=== PATIENT | male | born 1965 | race Caucasian/White ===

== ENCOUNTER → 2021-01-26 10:19 | Outpatient (CLI) | payer BC, SELFPAY ==
--- NOTE | ~2021-01-26 | CT_ITS ---
EXAMINATION: CTA chest DATE: 01/26/2021 11:02 INDICATION: Dilated aortic root (3.6 cm) TECHNIQUE: Computed tomography (CT) of the chest was performed with 100 cc Omnipaque 350 intravenous contrast. Automated exposure control and iterative reconstruction technique were employed. Exam dose: 868.71 mGy-cm total exam DLP. COMPARISON: None FINDINGS: No thoracic aortic aneurysm is evident. The ascending aorta measures approximately 3.3 cm d iameter, the aortic arch approximately 2.6 cm diameter, the descending thoracic aorta approximately 2 .4 cm. No thoracic aortic dissection is detected. Normal heart size. No pericardial or pleural effusion. No hilar or mediastinal mass lesion or lymphadenopathy. No pulmonary infiltrate or consolidation or pulmonary mass lesion is evident. Included upper abdominal structures are unremarkable. Included skeletal structures are unremarkable as well. IMPRESSION: No significant abnormality Reviewed, dictated and finalized at [facility]. Reviewed, dictated and finalized at [facility]. IMPRESSION: No significant abnormality
== END ==
PROVIDERS: Visit Provider Internal Medicine
DX: I77.810 Thoracic aortic ectasia (principal)
CPT/HCPCS: 71275; Q9967

== ENCOUNTER → 2023-01-25 12:53 | Outpatient (CLI) | payer BC, SELFPAY ==
--- NOTE | ~2023-01-25 | MR_ITS ---
EXAMINATION: MR brain IAC wo/w con DATE: 01/25/2023 13:50 INDICATION: Vertigo. TECHNIQUE: Magnetic resonance imaging (MRI) of the brain, brainstem, and internal auditory canals was performed without and with 20 mL MultiHance intravenous contrast. COMPARISON: None. FINDINGS: There is no intracranial hemorrhage, acute infarction, or abnormal intracranial mass lesion . The ventricles are normal in size. The orbits are normal. There is mild mucosal thickening in the e thmoid sinuses. The internal auditory canals and inner and middle ears are normal. The mastoid air ce lls are normal. IMPRESSION: 1. Normal brain. Reviewed, dictated and finalized at location [facility]. IMPRESSION: 1. Normal brain.
== END ==
PROVIDERS: PCP Internal Medicine; Visit Provider Internal Medicine
DX: R42 Dizziness and giddiness (principal)
CPT/HCPCS: 70553; A9577

== ENCOUNTER 2024-06-09 00:36 | Day surgery (SDC) | payer BC, SELFPAY ==
[2024-05-12 15:32] VITALS: BMI 25.9
[2024-06-09 08:39] VITALS: BP 98/73; PULSE 63; RESP 18; TEMP 36.1; O2SAT 100
[2024-06-09 08:49] VITALS: BMI 26.1
--- NOTE | 2024-06-09 08:51 | SUR.PREOP ---
Pt. states that DNR is for [facility] procedures. does not include colonoscopy. Desires full code status.
[2024-06-09] MEDS: LACTATED RINGERS 1,000 ML 30 ML IV CONT (08:56)
--- NOTE | 2024-06-09 09:20 | WPDANESEPPF ---
Anes - Initial Pre Proc Eval Procedure: Operation Date: 06/09/24 10:00 Proposed Procedures p Screening Colonoscopy - Kevin Brennan MD Date/Time: 06/09/24 09:20 Surgeon: Kevin Brennan MD Pre Op Diagnosis: Neoplasm screening Patient Data Age: 58 Gender: M Height: 1.91 m Weight: 94.7 kg Last Vital Signs Temp 97 F L 06/09/24 08:39 Pulse 63 06/09/24 08:39 Resp 18 06/09/24 08:39 BP 98/73 L 06/09/24 08:39 Pulse Ox 100 06/09/24 08:39 O2 Del Method Room Air 06/09/24 08:39 Allergies Allergy/AdvReac Type Severity Reaction Status Date / Time No Known Allergies Allergy Verified 05/12/24 15:26 Home Medications Medication Instructions Recorded Confirmed Type aspirin 81 mg PO HS 05/12/24 05/12/24 History atorvastatin 20 mg tablet 20 mg PO HS 05/12/24 05/12/24 History cholecalciferol (vitamin D3) 2,000 units PO HS 05/12/24 05/12/24 History coenzyme Q10 1 tablet PO HS 05/12/24 05/12/24 History levothyroxine 50 mcg tablet 50 mcg PO DAILY 05/12/24 05/12/24 History (Synthroid) Patient hx anesthesia problems: none Family hx anesthesia problems: none Results Review: All pre-operative results and documents have been reviewed as part of the pre-operative evaluation. [facility], [facility] Social History Social History Smoking status: Never smoker Alcohol intake: current Drinks per week: 7 Substance use: never Substance use type: does not use Living arrangements: with family Spiritual care concerns: No Anes - Eval Final PreProcedure Day of Procedure 06/09/24 09:20 Patient weight: normal Heart: regular rate and rhythm Lungs: clear to auscultation Airway: Mallampati scale class II Neurological: alert and oriented Last oral intake: >/= 8 hours ASA classification: II Emergent: no Anesthetic plan: proceed Anesthesia type and monitoring: general GIVS and standard monitoring Results Review: All pre-operative results and documents have been reviewed as part of the pre-operative evaluation. Hyperlipidemia, hypothyroidism. Pt active physically, no cp or sob w yard work. Informed Consent: The patient's anesthetic plan and its attendant risks and benefits were discussed with the patient/family/POA. Questions were solicited and answers provided to the satisfaction of the patient/family/POA.
--- NOTE | 2024-06-09 09:21 | PM.HPGS ---
History of Present Illness History of Present Illness Consent: Risks, benefits, and alternatives have been discussed and questions answered. Patient agrees to proceed with procedure. Chief complaint: Neoplasm screening Narrative: Jonathan Stanford is a 58 year old male here for screening colonoscopy, last one 10 years ago Review of Systems Review of Systems: All systems reviewed & are unremarkable except as noted in HPI and below PMFSH Past Medical History Medical History (Updated 06/09/24 @ 09:22 by Kevin Brennan MD) Colon cancer screening Social History Social History Smoking status: Never smoker Alcohol intake: current Drinks per week: 7 Substance use: never Substance use type: does not use Living arrangements: with family Spiritual care concerns: No Meds Home Medications and Allergies Home Medications Medication Instructions Recorded Confirmed Type aspirin 81 mg PO HS 05/12/24 05/12/24 History atorvastatin 20 mg tablet 20 mg PO HS 05/12/24 05/12/24 History cholecalciferol (vitamin D3) 2,000 units PO HS 05/12/24 05/12/24 History coenzyme Q10 1 tablet PO HS 05/12/24 05/12/24 History levothyroxine 50 mcg tablet 50 mcg PO DAILY 05/12/24 05/12/24 History (Synthroid) Allergies Allergy/AdvReac Type Severity Reaction Status Date / Time No Known Allergies Allergy Verified 05/12/24 15:26 Vital Signs Vital Signs - 24 hr 06/09/24 08:39 Temperature 97 F L Pulse Rate 63 Respiratory Rate 18 Blood Pressure 98/73 L Pulse Oximetry 100 Oxygen Delivery Room Air Exam Const: General: comfortable and no acute distress HENMT: Face/Nose/Sinus: Normal nares present Eyes: General: appearance normal, both eyes and all related structures Neck: Neck: no JVD Resp: Auscultation: clear to auscultation bilaterally Cardio: Rate: regular rate Rhythm: regular rhythm GI: Inspection: non-distended GI Palp: Yes Soft to palpation Skin: General skin exam: normal color Neuro: General: gait normal Speech: normal speech Extrem: General: normal to inspection Psych: Mental Status: mental status grossly normal Assessment and Plan Assessment and plan (1) Colon cancer screening: Code(s): Z12.11 - Encounter for screening for malignant neoplasm of colon Status: Acute Assessment and Plan: colonoscopy
[2024-06-09 09:44] VITALS: BP 96/61; PULSE 66; RESP 13; O2SAT 96
[2024-06-09 09:54] VITALS: BP 87/54; PULSE 65; RESP 15; O2SAT 96
[2024-06-09 10:04] VITALS: BP 105/62; PULSE 61; RESP 19; O2SAT 97
== END 2024-06-09 10:23 | disposition home or self-care (01) ==
PROVIDERS: PCP Internal Medicine; Referring Provider Internal Medicine; Visit Provider Internal Medicine Gastroenterology
PROC: 0DJD8ZZ Inspection of Lower Intestinal Tract, Via Natural or Artificial Opening Endoscopic (ICD-10-PCS; CPT 45378; principal; 2024-06-09 10:00)
DX: Z12.11 Encounter for screening for malignant neoplasm of colon (principal); K64.8 Other hemorrhoids; K57.30 Diverticulosis of large intestine without perforation or abscess without bleeding; Z79.82 Long term (current) use of aspirin
CPT/HCPCS: 45378; J2003; J2704; J7120